=== PATIENT | female | born 1935 | race Caucasian/White ===

== ENCOUNTER → 2018-04-14 16:37 | Outpatient (CLI) | payer MEDICARE, OTHER, SELFPAY ==
[2018-04-14 18:31] LABS: Add Manual Diff / Slide Review NO; Basophils Percent Auto 1.4 % (0-2); Eosinophils Percent Auto 4.4 % (2-4); Hematocrit 43.2 % (36-46); Hemoglobin 14.2 g/dL (12.0-16.0); Lymphocytes Percent Auto 36.4 % (25-40); Mean Corpuscular HGB Conc 32.8 % (30-36); Mean Corpuscular Hemoglobin 30.8 PG (26-34); Mean Corpuscular Volume 93.8 fL (80-100); Monocytes Percent Auto 10.4 % (3-14); Neutrophils Absolute Auto 2800 /uL (3000-5900); Neutrophils Percent Auto 47.4 % (50-75); Platelet Count 262 X10^3/uL (150-400); Red Blood Cell Count 4.61 X10^6/uL (4.0-5.2); Red Cell Distribution Width 14.1 % (11.6-14.8)
[2018-04-14 18:41] LABS: INR 1.1 (0.9-1.3); Prothrombin Time 11.7 SECONDS (10.1-12.7)
[2018-04-14 18:43] LABS: PTT Partial Thromboplastin Tim 28 SECONDS (26.4-36.2)
[2018-04-14 19:11] LABS: Alanine Aminotransferase 21 IU/L (9-52); Albumin 4.8 g/dL (3.5-5.0); Albumin Globulin Ratio 1.9 (1.0-2.8); Alkaline Phosphatase 52 U/L (38-126); Aspartate Aminotransferase 31 IU/L (14-36); Bilirubin Total 0.5 mg/dL (0.2-1.3); Blood Urea Nitrogen 14 mg/dL (7-17); Calcium 9.6 mg/dL (8.4-10.2); Carbon Dioxide 27 mmol/L (22-32); Chloride 102 mmol/L (98-107); Cholesterol 191 mg/dL (140-199); Estimated Glomerular Filt Rate > 60.0 mL/min (>60); Globulin 2.5 g/dL (1.7-4.1); Glucose 86 mg/dL (80-110); HEMOLYSIS < 15 (0-50); Potassium 4.6 mmol/L (3.4-5.1); Sodium 142 mmol/L (137-145); Total Protein 7.3 g/dL (6.3-8.2); Triglycerides 52 mg/dL (35-150)
[2018-04-14 19:18] LABS: HDL Cholesterol 128 mg/dL (40-60); LDL Cholesterol Calculated 53 mg/dL (<100)
== END ==
PROVIDERS: Visit Provider Ophthalmology
DX: H34.11 Central retinal artery occlusion, right eye (principal)
CPT/HCPCS: 36415; 80053; 80061; 85025; 85610; 85730

== ENCOUNTER → 2020-02-09 07:40 | Outpatient (CLI) | payer MEDICARE, OTHER, SELFPAY ==
[2020-02-09 10:50] LABS: Alanine Aminotransferase 10 IU/L (<35); Albumin 4.3 g/dL (3.5-5.0); Albumin Globulin Ratio 1.4 (1.0-2.8); Alkaline Phosphatase 56 U/L (38-126); Aspartate Aminotransferase 30 IU/L (14-36); BUN Creatinine Ratio 16.7 (6-22); Bilirubin Total 0.8 mg/dL (0.2-1.3); Blood Urea Nitrogen 11 mg/dL (7-17); Calcium 9.7 mg/dL (8.4-10.2); Carbon Dioxide 28 mmol/L (22-32); Chloride 103 mmol/L (98-107); Cholesterol 174 mg/dL (140-199); Estimated Glomerular Filt Rate > 60.0 mL/min (>60); Glucose 87 mg/dL (80-110); HDL Cholesterol 86 mg/dL (40-60); HEMOLYSIS < 15 (0-50); LDL Cholesterol Calculated 73 mg/dL (<100); Potassium 4.2 mmol/L (3.4-5.1); Sodium 137 mmol/L (137-145); Total Protein 7.3 g/dL (6.3-8.2); Triglycerides 77 mg/dL (35-150)
[2020-02-09 11:06] LABS: Vitamin D 25 Hydroxy (D3) 51.3 ng/mL (30.0-100.0)
[2020-02-09 11:12] LABS: Free T4, Direct Thyroxine 1.39 ng/dL (0.78-2.19); T4 Total Thyroxine 7.81 ug/dL (5.5-11.0); T7 (Free Thyroxine Index) 3.16 (1.65-3.89); Triiodothryronine T3 Uptake 40.4 % (23.5-40.5)
[2020-02-09 11:25] LABS: Thyroid Stimulating Hormone 0.055 uIU/mL (0.47-4.68)
== END ==
PROVIDERS: PCP Family Medicine Adult Medicine; Referring Provider Family Medicine Adult Medicine; Visit Provider Family Medicine Adult Medicine
DX: E03.9 Hypothyroidism, unspecified (principal); E78.5 Hyperlipidemia, unspecified; E55.9 Vitamin D deficiency, unspecified
CPT/HCPCS: 36415; 80053; 80061; 82306; 84436; 84439; 84443; 84479

== ENCOUNTER → 2020-05-02 09:48 | Outpatient (CLI) | payer MEDICARE, OTHER, SELFPAY ==
[2020-05-02 11:22] LABS: T4 Total Thyroxine 8.86 ug/dL (5.5-11.0); T7 (Free Thyroxine Index) 3.58 (1.65-3.89); Triiodothryronine T3 Uptake 40.4 % (23.5-40.5)
[2020-05-02 11:35] LABS: Thyroid Stimulating Hormone 0.037 uIU/mL (0.47-4.68)
== END ==
PROVIDERS: PCP Family Medicine Adult Medicine; Referring Provider Family Medicine Adult Medicine; Visit Provider Family Medicine Adult Medicine
DX: E03.9 Hypothyroidism, unspecified (principal)
CPT/HCPCS: 36415; 84436; 84439; 84443; 84479

== ENCOUNTER → 2021-10-24 13:13 | Outpatient (CLI) | payer MEDICARE, OTHER, SELFPAY ==
[2021-10-24 13:52] LABS: Hematocrit 42.8 % (36-46); Hemoglobin 14.3 g/dL (12.0-16.0); Mean Corpuscular HGB Conc 33.4 % (30-36); Mean Corpuscular Hemoglobin 30.5 PG (26-34); Mean Corpuscular Volume 91.3 fL (80-100); Platelet Count 293 X10^3/uL (150-400); Red Blood Cell Count 4.68 X10^6/uL (4.0-5.2); Red Cell Distribution Width 14.5 % (11.6-14.8); White Blood Cell Count 5.8 X10^3/uL (4.5-11.0)
[2021-10-24 14:21] LABS: Alanine Aminotransferase 12 IU/L (<35); Albumin 4.8 g/dL (3.5-5.0); Albumin Globulin Ratio 1.6 (1.0-2.8); Alkaline Phosphatase 60 U/L (38-126); Aspartate Aminotransferase 31 IU/L (14-36); BUN Creatinine Ratio 20.5 (6-22); Bilirubin Total 0.5 mg/dL (0.2-1.3); Blood Urea Nitrogen 15 mg/dL (7-17); Calcium 9.6 mg/dL (8.4-10.2); Carbon Dioxide 29 mmol/L (22-32); Chloride 104 mmol/L (98-107); Cholesterol 199 mg/dL (140-199); Estimated Glomerular Filt Rate > 60 mL/min (>60); Glucose 125 mg/dL (80-110); HDL Cholesterol 107 mg/dL (40-60); HEMOLYSIS < 15 (0-50); LDL Cholesterol Calculated 78 mg/dL (<100); Sodium 140 mmol/L (137-145); Total Protein 7.8 g/dL (6.3-8.2); Triglycerides 71 mg/dL (35-150)
[2021-10-24 14:52] LABS: TSH w/ Reflex to FT4 0.28 uIU/mL (0.47-4.68)
[2021-10-24 15:20] LABS: Free T4, Direct Thyroxine 1.52 ng/dL (0.78-2.19)
== END ==
PROVIDERS: PCP Internal Medicine; Referring Provider Internal Medicine; Visit Provider Internal Medicine
DX: E03.9 Hypothyroidism, unspecified (principal); H34.8112 Central retinal vein occlusion, right eye, stable; I10 Essential (primary) hypertension
CPT/HCPCS: 36415; 80053; 80061; 84439; 84443; 85027

== ENCOUNTER → 2021-12-18 14:32 | Outpatient (CLI) | payer MEDICARE, OTHER, SELFPAY | PROVIDERS: PCP Internal Medicine; Referring Provider Internal Medicine; Visit Provider Internal Medicine ==

== ENCOUNTER → 2022-01-15 11:52 | Outpatient (CLI) | payer MEDICARE, OTHER, SELFPAY | PROVIDERS: Family Provider Internal Medicine; PCP Internal Medicine; Referring Provider Internal Medicine; Visit Provider Internal Medicine ==

== ENCOUNTER → 2022-02-01 14:00 | Outpatient (CLI) | payer MEDICARE, OTHER, SELFPAY | PROVIDERS: Family Provider Internal Medicine; PCP Internal Medicine; Referring Provider Internal Medicine; Visit Provider Internal Medicine | DX: Z13.820 Encounter for screening for osteoporosis; Z78.0 Asymptomatic menopausal state; M85.851 Other specified disorders of bone density and structure, right thigh; Z92.23 Personal history of estrogen therapy | CPT/HCPCS: 77080; 77081 ==

== ENCOUNTER → 2022-04-11 11:56 | Outpatient (CLI) | payer MEDICARE, OTHER, SELFPAY ==
[2022-04-11 14:12] LABS: Free T4, Direct Thyroxine 0.95 ng/dL (0.78-2.19)
== END ==
PROVIDERS: Family Provider Internal Medicine; PCP Internal Medicine; Referring Provider Internal Medicine; Visit Provider Internal Medicine
DX: E03.9 Hypothyroidism, unspecified (principal)
CPT/HCPCS: 36415; 84439; 84443

== ENCOUNTER → 2022-04-16 12:52 | Outpatient (CLI) | payer MEDICARE, OTHER, SELFPAY ==
--- NOTE | 2022-04-16 12:54 | DI.MRI.S_ITS ---
PROCEDURE: MR SHOULDER RT WO CON INDICATIONS: Unspecified rotator cuff tear or rupture right TECHNIQUE: Noncontrast oblique coronal T2 fast spin echo with fat saturation, oblique sagittal T1 spin echo and T2 fast spin echo with fat saturation, axial T1 spin echo and T2 fast spin echo with fat saturation through the shoulder. COMPARISON: [facility], CR, XR SHOULDER 2+ VIEWS RIGHT, 04/08/2022, 10:12. FINDINGS: Image quality: Excellent. Rotator cuff: There is full-thickness tearing of the supraspinatus tendon and the anterior fibers of the infraspinatus tendon from their distal footprints measuring approximately 1.8 cm in anterior-posterior dimension with mild proximal tendon retraction measuring up to 1.6 cm. The teres minor tendon is intact. There is moderate subscapularis tendinosis and mild focal low-grade intrasubstance tearing at the superior insertion. No disproportionate rotator cuff muscle atrophy. Bones and bursae: No acute trabecular bone injury or fracture. There is partial-thickness cartilage thinning in the central glenoid and mild marginal osteophyte formation in the glenoid rim and inferior humeral head. [id number] degenerative changes are seen in the acromioclavicular joint with subchondral cystic changes intact and marginal osteophytes. And inferiorly projecting lateral acromial osteophyte is seen with subchondral cystic changes. There is a moderate amount of fluid in the subacromial/subdeltoid bursa, which communicates with the glenohumeral joint space. Capsule and soft tissues: There is circumferential labored degeneration and probable chronic nondisplaced tearing. The proximal biceps long head tendon demonstrates mild tendinosis. There is effacement of the normal fat signal in the rotator interval. Glenohumeral ligaments are grossly intact. IMPRESSION: 1. Full-thickness tearing of the supraspinatus tendon and the anterior fibers of the infraspinatus tendon from their distal footprints measuring up to 1.8 cm and anterior-posterior dimension with 1.6 cm of proximal tendon retraction. 2. Moderate subscapularis tendinosis with superimposed small focal low-grade intrasubstance tearing at the superior insertion. 3. Mild proximal biceps long head tendinosis. 4. Diffuse labral degeneration and chronic degenerative tearing. 5. Mild to moderate acromioclavicular joint osteoarthrosis. And inferiorly projecting lateral acromial osteophyte is seen with associated subchondral cystic changes. 6. Moderate subacromial/subdeltoid bursal effusion communicates with the glenohumeral joint space. Approved by: Bola Landa M.D. on 04/16/2022 at 17:06
== END ==
PROVIDERS: Family Provider Internal Medicine; PCP Internal Medicine; Referring Provider Orthopaedic Surgery; Visit Provider Orthopaedic Surgery
DX: M75.121 Complete rotator cuff tear or rupture of right shoulder, not specified as traumatic (principal); S43.491A Other sprain of right shoulder joint, initial encounter; M19.011 Primary osteoarthritis, right shoulder; M25.411 Effusion, right shoulder
CPT/HCPCS: 73221

== ENCOUNTER → 2022-07-09 08:07 | Outpatient (CLI) | payer MEDICARE, OTHER, SELFPAY ==
[2022-07-09 09:17] LABS: Hematocrit 39.8 % (36-46); Hemoglobin 13.4 g/dL (12.0-16.0); Mean Corpuscular HGB Conc 33.6 % (30-36); Mean Corpuscular Volume 95.3 fL (80-100); Platelet Count 254 X10^3/uL (150-400); Red Blood Cell Count 4.18 X10^6/uL (4.0-5.2); Red Cell Distribution Width 14.7 % (11.6-14.8); White Blood Cell Count 5.1 X10^3/uL (4.5-11.0)
[2022-07-09 09:28] LABS: Alanine Aminotransferase 15 IU/L (<35); Albumin 4.1 g/dL (3.5-5.0); Albumin Globulin Ratio 1.4 (1.0-2.8); Alkaline Phosphatase 50 U/L (38-126); Aspartate Aminotransferase 31 IU/L (14-36); BUN Creatinine Ratio 19.4 (6-22); Bilirubin Total 0.7 mg/dL (0.2-1.3); Blood Urea Nitrogen 14 mg/dL (7-17); Calcium 9.3 mg/dL (8.4-10.2); Carbon Dioxide 28 mmol/L (22-32); Chloride 104 mmol/L (98-107); Cholesterol 201 mg/dL (140-199); Estimated Glomerular Filt Rate > 60 mL/min (>60); Globulin 2.9 g/dL (1.7-4.1); Glucose 92 mg/dL (80-110); HDL Cholesterol 97 mg/dL (40-60); HEMOLYSIS < 15 (0-50); LDL Cholesterol Calculated 91 mg/dL (<100); Potassium 4.5 mmol/L (3.4-5.1); Sodium 138 mmol/L (137-145); Triglycerides 64 mg/dL (35-150)
[2022-07-09 10:33] LABS: Free T4, Direct Thyroxine 1.08 ng/dL (0.78-2.19)
== END ==
PROVIDERS: Family Provider Internal Medicine; PCP Internal Medicine; Referring Provider Internal Medicine; Visit Provider Internal Medicine
DX: I10 Essential (primary) hypertension (principal); E03.9 Hypothyroidism, unspecified; E78.2 Mixed hyperlipidemia; M81.0 Age-related osteoporosis without current pathological fracture
CPT/HCPCS: 36415; 80053; 80061; 84439; 84443; 85027

== ENCOUNTER → 2022-08-23 08:58 | Outpatient (CLI) | payer MEDICARE, OTHER, SELFPAY ==
[2022-08-23 09:56] LABS: BUN Creatinine Ratio 19.4 (6-22); Blood Urea Nitrogen 13 mg/dL (7-17); Carbon Dioxide 28 mmol/L (22-32); Chloride 103 mmol/L (98-107); Estimated Glomerular Filt Rate > 60 mL/min (>60); Glucose 88 mg/dL (80-110); HEMOLYSIS < 15 (0-50); Potassium 4.4 mmol/L (3.4-5.1); Sodium 136 mmol/L (137-145)
== END ==
PROVIDERS: Family Provider Internal Medicine; PCP Internal Medicine; Referring Provider Internal Medicine; Visit Provider Internal Medicine
DX: I10 Essential (primary) hypertension (principal)
CPT/HCPCS: 36415; 80048

== ENCOUNTER 2022-11-05 10:20 | Emergency (ER) | payer MEDICARE, OTHER, SELFPAY ==
[2022-11-05 10:33] VITALS: BP 160/66; PULSE 67; RESP 18; TEMP 36.5; O2SAT 99
[2022-11-05 11:23] LABS: Add Manual Diff / Slide Review NO; Basophils Absolute Auto 0 /uL (0-100); Eosinophils Absolute Auto 0 /uL (0-450); Eosinophils Percent Auto 0.9 % (2-4); Hemoglobin 14.8 g/dL (12.0-16.0); Lymphocytes Absolute Auto 1600 /uL (1100-4500); Lymphocytes Percent Auto 31.2 % (25-40); Mean Corpuscular HGB Conc 34.3 % (30-36); Mean Corpuscular Hemoglobin 31.5 PG (26-34); Mean Corpuscular Volume 91.7 fL (80-100); Monocytes Absolute Auto 600 /uL (0-900); Monocytes Percent Auto 10.7 % (3-14); Neutrophils Absolute Auto 2900 /uL (1500-7000); Neutrophils Percent Auto 56.2 % (50-75); Platelet Count 274 X10^3/uL (150-400); Red Blood Cell Count 4.68 X10^6/uL (4.0-5.2); Red Cell Distribution Width 14.7 % (11.6-14.8); White Blood Cell Count 5.2 X10^3/uL (4.5-11.0)
[2022-11-05 11:43] LABS: Alanine Aminotransferase 18 IU/L (<35); Albumin 4.8 g/dL (3.5-5.0); Albumin Globulin Ratio 1.5 (1.0-2.8); Alkaline Phosphatase 53 U/L (38-126); Aspartate Aminotransferase 32 IU/L (14-36); Bilirubin Total 0.8 mg/dL (0.2-1.3); Blood Urea Nitrogen 13 mg/dL (7-17); Calcium 9.5 mg/dL (8.4-10.2); Carbon Dioxide 28 mmol/L (22-32); Chloride 101 mmol/L (98-107); Estimated Glomerular Filt Rate > 60 mL/min (>60); Globulin 3.2 g/dL (1.7-4.1); Glucose 124 mg/dL (80-110); HEMOLYSIS < 15 (0-50); Lipase 120 U/L (23-300); Potassium 4.1 mmol/L (3.4-5.1); Sodium 138 mmol/L (137-145)
--- NOTE | 2022-11-05 12:46 | ED_ITS ---
HPI - Abdominal Pain <Massiel Arenas PA-C - Last Filed: 11/05/22 16:39> General Chief Complaint: Abdominal Pain Stated Complaint: pain in right side Time Seen by Provider: 11/05/22 12:19 Source: patient Mode of arrival: Family Vehicle History of Present Illness HPI narrative: 87-year-old female with past medical history hyperlipidemia, hypertension, hypothyroidism presents to the ED with 1 day of right-sided abdominal pain. Patient states she awoke this morning with a right-sided abdominal pain, both the right upper and right lower quadrants. Patient states that in the ED, she had a bowel movement which was somewhat looser than normal, her abdominal pain seems greatly improved after that. Patient denies fever, chills, chest pain, shortness of breath, nausea, vomiting, dysuria, flank pain, hematochezia, m maribeth, lightheadedness, dizziness, syncope. Patient has had a prior rectopexy and hernia repair. Related Data Home Medications Medication Instructions Recorded Confirmed calcium carbonate 500 mg capsule 500 mg PO BID 10/24/21 11/06/22 aspirin 81 mg tablet,delayed 81 mg PO .every other day 01/24/22 11/06/22 release levothyroxine 50 mcg tablet 50 mcg PO .COMPLEX 07/12/22 11/06/22 Previous Rx's Medication Instructions Recorded losartan 50 mg tablet 50 mg PO DAILY #90 tabs 08/09/22 Allergies Allergy/AdvReac Type Severity Reaction Status Date / Time amoxicillin Allergy Unknown Verified 11/06/22 14:52 lisinopril AdvReac Intermediate Cough Verified 11/06/22 14:52 nitrofurantoin AdvReac Unknown Verified 11/06/22 14:52 Review of Systems <Massiel Arenas PA-C - Last Filed: 11/05/22 16:39> Review of Systems ROS Unobtainable: All systems reviewed & are unremarkable except as noted in HPI and below Constitutional Constitutional: Denies chills, Denies fatigue, Denies fever(s), Denies frequent falls, Denies lethargy and Denies weakness Eyes Eyes: Denies change in vision, Denies eye discharge, Denies irritation and Denies loss of vision ENT Ears, Nose, Mouth, and Throat: Denies change in voice, Denies dizziness, Denies neck pain, Denies sore throat and Denies throat swelling Cardiovascular Cardiovascular: Denies chest pain, Denies irregular heart rhythm, Denies lightheadedness, Denies palpitations, Denies dyspnea, Denies dyspnea on exertion and Denies orthopnea Respiratory Respiratory: Denies cough, Denies dyspnea, Denies dyspnea on exertion and Denies wheezing Gastrointestinal Gastrointestinal: Reports abdominal pain, Denies change in bowel habits, Denies diarrhea, Denies nausea and Denies vomiting Genitourinary Genitourinary: Denies hematuria, Denies flank pain, Denies urinary incontinence and Denies urinary urgency Musculoskeletal Musculoskeletal: Denies back pain, Denies muscle weakness, Denies neck pain, Denies numbness and Denies tingling Integumentary/Breasts Skin/Breast: Denies pruritus, Denies erythema, Denies rash and Denies wounds Neurologic Neurologic: Denies behavioral changes, Denies confusion, Denies dizziness, Denies frequent falls, Denies loss of vision, Denies numbness, Denies tingling and Denies weakness Psychiatric Psychiatric: Denies anxiety, Denies behavioral changes, Denies confusion, Denies depression, Denies homicidal ideation and Denies suicidal ideation Endocrine Endocrine: Denies fatigue, Denies flushing and Denies palpitations Hematologic/Lymphatic Hematologic/Lymphatic: Denies easy bruising Allergic/Immunologic Allergic/Immunologic: Denies urticaria, Denies throat swelling and Denies wheezing Patient History <Massiel Arenas PA-C - Last Filed: 11/05/22 16:39> Medical History Abnormal Pap smear of cervix (~1973) Acquired hypothyroidism Actinic keratosis Age-related osteoporosis without current pathological fracture Carpal tunnel syndrome Cataracts, bilateral Chicken pox CRVO (central retinal vein occlusion) Do not resuscitate Essential hypertension Frequent UTI Hearing loss Hemorrhoid (~2004) IgA deficiency Measles Mixed hyperlipidemia Mumps Pseudogout Surgical History Anesthesia History of hip replacement (~2007) History of inguinal hernia repair (~1941) History of rectopexy (~2004) History of tubal ligation (~1969) Hx of breast implants, bilateral (~1977) Social History marital status: details: ([place]) Smoking Status: Former smoker Smoking Status: Former smoker tobacco type: cigarettes alcohol intake frequency: 0-2 drinks per day Substance Use Type: does not use Exam <Massiel Arenas PA-C - Last Filed: 11/05/22 16:39> Narrative Exam Narrative: Const General:?cooperative, healthy appearing and comfortable [facility] Head:?normal to inspection Ears:?hearing grossly normal bilaterally Nose:?external nose normal Face and sinus:?normal facial exam and sinuses nontender Mouth:?oral mucosae normal Throat:?posterior oropharynx normal Eyes General:?appearance normal, both eyes and all related structures Neck Neck:?normal visual inspection and no lymphadenopathy noted Resp Effort & Inspection:?normal respiratory effort Auscultation:?clear to auscultation bilaterally Cardio Rate:?regular rate Rhythm:?regular rhythm GI Abdomen is soft, nondistended. Abdomen is significantly tender to palpation the right upper quadrant, mildly tender to palpation in the right lower quadrant. There is no CVA tenderness. Neuro General:?patient alert, patient awake and patient oriented x3 Initial Vital Signs Initial Vital Signs: Vital Signs Temperature 97.7 F 11/05/22 10:33 Pulse Rate 67 11/05/22 10:33 Respiratory Rate 18 11/05/22 10:33 Blood Pressure 160/66 H 11/05/22 10:33 Pulse Oximetry 99 11/05/22 10:33 Oxygen Delivery Method Room Air 11/05/22 10:33 <Tanya Shah DO - Last Filed: 11/08/22 07:26> Initial Vital Signs Initial Vital Signs: Vital Signs Temperature 97.7 F 11/05/22 10:33 Pulse Rate 67 11/05/22 10:33 Respiratory Rate 18 11/05/22 10:33 Blood Pressure 160/66 H 11/05/22 10:33 Pulse Oximetry 99 11/05/22 10:33 Oxygen Delivery Method Room Air 11/05/22 10:33 Course <Massiel Arenas PA-C - Last Filed: 11/05/22 16:39> Orders Ordered: Discontinued Medications Ondansetron HCl (Ondansetron 4 Mg Odt) 4 mg PO NOW PRN PRN Reason: Nausea And Vomiting Ondansetron HCl (Ondansetron 4 Mg/2 Ml Inj) 4 mg IV NOW PRN PRN Reason: Nausea And Vomiting Vital Signs Vital signs: Vital Signs - 8 hr 11/05/22 10:33 11/05/22 13:03 11/05/22 13:04 Temperature 97.7 F Pulse Rate 67 56 L Respiratory Rate 18 Blood Pressure 160/66 H Pulse Oximetry 99 94 94 Oxygen Delivery Method Room Air Room Air 11/05/22 13:04 11/05/22 13:45 11/05/22 13:45 Temperature Pulse Rate 65 Respiratory Rate 18 Blood Pressure 154/70 H 162/76 H Pulse Oximetry 99 Oxygen Delivery Method Room Air 11/05/22 16:09 Temperature Pulse Rate 65 Respiratory Rate 20 Blood Pressure 164/72 H Pulse Oximetry 98 Oxygen Delivery Method Room Air <Tanya Shah DO - Last Filed: 11/08/22 07:26> Orders Ordered: Discontinued Medications Ondansetron HCl (Ondansetron 4 Mg Odt) 4 mg PO NOW PRN PRN Reason: Nausea And Vomiting Ondansetron HCl (Ondansetron 4 Mg/2 Ml Inj) 4 mg IV NOW PRN PRN Reason: Nausea And Vomiting Vital Signs Vital signs: Vital Signs - 8 hr 11/05/22 10:33 11/05/22 13:03 11/05/22 13:04 Temperature 97.7 F Pulse Rate 67 56 L Respiratory Rate 18 Blood Pressure 160/66 H Pulse Oximetry 99 94 94 Oxygen Delivery Method Room Air Room Air 11/05/22 13:04 11/05/22 13:45 11/05/22 13:45 Temperature Pulse Rate 65 Respiratory Rate 18 Blood Pressure 154/70 H 162/76 H Pulse Oximetry 99 Oxygen Delivery Method Room Air 11/05/22 16:09 Temperature Pulse Rate 65 Respiratory Rate 20 Blood Pressure 164/72 H Pulse Oximetry 98 Oxygen Delivery Method Room Air MDM - Abdominal Pain <Massiel Arenas PA-C - Last Filed: 11/05/22 16:39> Lab Data 11/05/22 11:15 11/05/22 11:15 Labs: Lab Results 11/05/22 11/05/22 11/05/22 Range/Units 11:15 11:15 14:03 WBC 5.2 (4.5-11.0) X10^3/uL RBC 4.68 (4.0-5.2) X10^6/uL Hgb 14.8 (12.0-16.0) g/dL Hct 43.0 (36-46) % MCV 91.7 (80-100) fL MCH 31.5 (26-34) PG MCHC 34.3 (30-36) % RDW 14.7 (11.6-14.8) % Plt Count 274 (150-400) X10^3/uL Neut % (Auto) 56.2 (50-75) % Lymph % (Auto) 31.2 (25-40) % Catron % (Auto) 10.7 (3-14) % Eos % (Auto) 0.9 L (2-4) % Baso % (Auto) 1.0 (0-2) % Neut # (Auto) 2900 (3646-2374) /uL Lymph # (Auto) 1600 (1209-3087) /uL Catron # (Auto) 600 (0-900) /uL Eos # (Auto) 0 (0-450) /uL Baso # (Auto) 0 (0-100) /uL Sodium 138 (137-145) mmol/L Potassium 4.1 (3.4-5.1) mmol/L Chloride 101 (98-107) mmol/L Carbon Dioxide 28 (22-32) mmol/L BUN 13 (7-17) mg/dL Creatinine 0.65 (0.52-1.04) mg/dL Estimated GFR > 60 (>60) mL/min BUN/Creatinine Ratio 20.0 (6-22) Glucose 124 H (80-110) mg/dL Calcium 9.5 (8.4-10.2) mg/dL Total Bilirubin 0.8 (0.2-1.3) mg/dL AST 32 (14-36) IU/L ALT 18 (<35) IU/L Alkaline Phosphatase 53 (38-126) U/L Total Protein 8.0 (6.3-8.2) g/dL Albumin 4.8 (3.5-5.0) g/dL Globulin 3.2 (1.7-4.1) g/dL Albumin/Globulin Ratio 1.5 (1.0-2.8) Lipase 120 (23-300) U/L Urine Color Yellow Urine Appearance Clear Urine pH 7.5 (4.5-8.0) Ur Specific [place] 1.010 (1.000-1.035) Urine Protein Negative (Negative) Urine Glucose (UA) Negative (Negative) g/dL Urine Ketones Negative (NEGATIVE) Urine Occult Blood Negative (Negative) Urine Nitrate Negative (Negative) Urine Bilirubin Negative (NEGATIVE) Urine Urobilinogen 0.2 (0.2) E.U./dL Ur Leukocyte Esterase Negative (NEGATIVE) Urine RBC None seen (0-5/HPF) Urine WBC None seen (0-5/HPF) Ur Squamous Epith Cells None seen (0-5/HPF) Urine Bacteria None seen (None) Ur Culture Indicated? Cult not indicated MDM Narrative Medical decision making narrative: 87-year-old female with past medical history hyperlipidemia, hypertension, hypothyroidism presents to the ED with 1 day of right-sided abdominal pain. Concern for gallbladder disease versus appendicitis versus constipation versus diverticulitis versus other intra-abdominal pathology versus other. Will obtain labs, UA, lipase, CT abdomen pelvis, ultrasound right upper quadrant. Will reassess. Labs, urine normal. CT abdomen pelvis and ultrasound without acute findings. Patient's symptoms likely due to gastroenteritis or constipation. Discussed findings with patient. Patient agrees to monitor symptoms and return to the ED if symptoms worsen. Medical records reviewed: Yes <Tanya Shah DO - Last Filed: 11/08/22 07:26> Lab Data Labs: Lab Results 11/05/22 11/05/22 11/05/22 Range/Units 11:15 11:15 14:03 WBC 5.2 (4.5-11.0) X10^3/uL RBC 4.68 (4.0-5.2) X10^6/uL Hgb 14.8 (12.0-16.0) g/dL Hct 43.0 (36-46) % MCV 91.7 (80-100) fL MCH 31.5 (26-34) PG MCHC 34.3 (30-36) % RDW 14.7 (11.6-14.8) % Plt Count 274 (150-400) X10^3/uL Neut % (Auto) 56.2 (50-75) % Lymph % (Auto) 31.2 (25-40) % Catron % (Auto) 10.7 (3-14) % Eos % (Auto) 0.9 L (2-4) % Baso % (Auto) 1.0 (0-2) % Neut # (Auto) 2900 (1474-4429) /uL Lymph # (Auto) 1600 (9126-2803) /uL Catron # (Auto) 600 (0-900) /uL Eos # (Auto) 0 (0-450) /uL Baso # (Auto) 0 (0-100) /uL Sodium 138 (137-145) mmol/L Potassium 4.1 (3.4-5.1) mmol/L Chloride 101 (98-107) mmol/L Carbon Dioxide 28 (22-32) mmol/L BUN 13 (7-17) mg/dL Creatinine 0.65 (0.52-1.04) mg/dL Estimated GFR > 60 (>60) mL/min BUN/Creatinine Ratio 20.0 (6-22) Glucose 124 H (80-110) mg/dL Calcium 9.5 (8.4-10.2) mg/dL Total Bilirubin 0.8 (0.2-1.3) mg/dL AST 32 (14-36) IU/L ALT 18 (<35) IU/L Alkaline Phosphatase 53 (38-126) U/L Total Protein 8.0 (6.3-8.2) g/dL Albumin 4.8 (3.5-5.0) g/dL Globulin 3.2 (1.7-4.1) g/dL Albumin/Globulin Ratio 1.5 (1.0-2.8) Lipase 120 (23-300) U/L Urine Color Yellow Urine Appearance Clear Urine pH 7.5 (4.5-8.0) Ur Specific [place] 1.010 (1.000-1.035) Urine Protein Negative (Negative) Urine Glucose (UA) Negative (Negative) g/dL Urine Ketones Negative (NEGATIVE) Urine Occult Blood Negative (Negative) Urine Nitrate Negative (Negative) Urine Bilirubin Negative (NEGATIVE) Urine Urobilinogen 0.2 (0.2) E.U./dL Ur Leukocyte Esterase Negative (NEGATIVE) Urine RBC None seen (0-5/HPF) Urine WBC None seen (0-5/HPF) Ur Squamous Epith Cells None seen (0-5/HPF) Urine Bacteria None seen (None) Ur Culture Indicated? Cult not indicated Discharge Plan Departure Patient Disposition: Home Clinical Impression: Abdominal pain Instructions: DI for Abdominal Pain-Adult Activity Restrictions/Additional Instructions: You were evaluated in the ED today for abdominal pain. Your labs, urine, CT abdomen pelvis, ultrasound were normal. It is possible that your abdominal pain was due to an upset stomach from something that UA that might not have agreed with you. Please continue to monitor your symptoms, return to the ED if your abdominal pain worsens, you are persistently vomiting, you develop fevers or chills. Please follow-up with your PCP as soon as possible. Prescriptions: No Action losartan 50 mg tablet 50 mg PO DAILY Qty: 90 3RF aspirin 81 mg tablet,delayed release (DR/EC) 81 mg PO .every other day levothyroxine 50 mcg tablet 50 mcg PO .COMPLEX Rx Instructions: 1 tablet daily 5 days weekly, take two tablets 2 days weekly calcium carbonate 500 mg capsule 500 mg PO BID Referrals: Jim Fuller MD [Primary Care Provider] - Stand Alone Forms: Patient Portal/API <Tanya Shah DO - Last Filed: 11/08/22 07:26> Cosign ED Attending Deeature Attestation: I was immediately available in the department for consultation. Documentation has been reviewed.
--- NOTE | 2022-11-05 12:55 | DI.CT.S_ITS ---
PROCEDURE: CT ABDOMEN PELVIS W CON INDICATIONS: RLQ pain TECHNIQUE: After the administration of intravenous contrast, axial sections acquired from the lung bases to the pubic symphysis. Coronal and sagittal reformats were performed. For radiation dose reduction, the following was used: automated exposure control, adjustment of mA and/or kV according to patient size. COMPARISON: [facility], CT, ABDOMEN/PELVIS WITH CONTRAST, 04/14/2013, 20:37. FINDINGS: Image quality: Degraded by left hip arthroplasty artifact. Lung bases: Unremarkable. Heart: No significant findings. ABDOMEN: Liver: Unremarkable. Gallbladder: Unremarkable. Biliary ducts: Unremarkable. Pancreas: Unremarkable. Spleen: Unremarkable. Adrenal Glands: Unremarkable. Kidneys and Ureters: Unremarkable. Stomach and Bowel: Stomach, small bowel loops, and colon are unremarkable. Appendix is not seen. No evidence of appendicitis. Peritoneum: No abnormal intraperitoneal fluid. No free air. Ventral Wall: No hernias. Abdominal Nodes: No retroperitoneal or mesenteric adenopathy by size criteria. Vessels: Aorta and inferior vena cava are normal in size. PELVIS: Pelvic Organs: Unremarkable. Bladder: Unremarkable. Pelvic Nodes: No enlarged lymph nodes. Miscellaneous: No hernias are seen. Bones: Unremarkable. IMPRESSION: 1. No acute process. 2. Appendix not seen. No evidence of appendicitis. Dictated by: Keturah Mejia M.D. on 11/05/2022 at 13:59 Approved by: Keturah Mejia M.D. on 11/05/2022 at 14:02
--- NOTE | 2022-11-05 12:55 | DI.US.S_ITS ---
PROCEDURE: US ABDOMEN LIMITED INDICATIONS: RIGHT UPPER QUADRANT PAIN TECHNIQUE: Real-time scanning was performed of the abdominal and retroperitoneal organs, with image documentation. COMPARISON: None. FINDINGS: Liver: Homogeneous echotexture. No evidence of focal mass lesion. No intra hepatic biliary ductal dilatation Gallbladder: Sonolucent without cholelithiasis. No gallbladder wall thickening. No pericholecystic fluid or Tavares's sign. Common Bile Duct: 3.7 mm. Pancreas: Nonvisualized IMPRESSION: 1. Unremarkable right upper quadrant ultrasound Approved by: Demetri Johnson M.D. on 11/05/2022 at 14:46
[2022-11-05 13:03] VITALS: O2SAT 94
[2022-11-05 13:04] VITALS: BP 154/70; PULSE 56; O2SAT 94
[2022-11-05 13:45] VITALS: BP 162/76; PULSE 65; RESP 18; O2SAT 99
--- NOTE | 2022-11-05 13:45 | PC.NURSE ---
Patient reports improvement in pain since a bowel movement in department, able to reproduce pain by flexing abdomen.
[2022-11-05 14:42] LABS: Appearance Urine UA CLEAR; Bilirubin Urine UA NEGATIVE (NEGATIVE); Color Urine UA YELLOW; Glucose Urine UA NEGATIVE (Negative); Ketones Urine UA NEGATIVE (NEGATIVE); Leukocyte Esterase Urine UA NEGATIVE (NEGATIVE); Nitrite Urine UA NEGATIVE (Negative); Occult Blood Urine UA NEGATIVE (Negative); Protein Urine UA NEGATIVE (Negative); Urobilinogen Urine UA 0.2 E.U./dL (0.2)
[2022-11-05 14:44] LABS: pH Urine UA 7.5 (4.5-8.0)
[2022-11-05 14:56] LABS: Bacteria Urine None Seen; Culture Indicated Urine Cult Not Indicated; RBC Urine None Seen (0-5/HPF); Squamous Epithelial Cell Urine None Seen (0-5/HPF); WBC Urine None Seen (0-5/HPF)
[2022-11-05 16:09] VITALS: BP 164/72; PULSE 65; RESP 20; O2SAT 98
== END 2022-11-05 16:10 | disposition home or self-care (01) ==
PROVIDERS: Emergency Medicine; Emergency Provider Student in an Organized Health Care Education/Training Program; Family Provider Internal Medicine; PCP Internal Medicine
DX: R10.11 Right upper quadrant pain (principal)
CPT/HCPCS: 36415; 74177; 76705; 80053; 81001; 83690; 85025; 99284; Q9967

== ENCOUNTER → 2023-01-23 08:35 | Outpatient (CLI) | payer MEDICARE, OTHER, SELFPAY ==
[2023-01-23 09:24] LABS: Cholesterol 194 mg/dL (140-199); HDL Cholesterol 108 mg/dL (40-60); LDL Cholesterol Calculated 73 mg/dL (<100); Triglycerides 65 mg/dL (35-150)
[2023-01-23 09:49] LABS: Thyroid Stimulating Hormone 4.71 uIU/mL (0.47-4.68)
== END ==
PROVIDERS: Family Provider Internal Medicine; PCP Internal Medicine; Referring Provider Internal Medicine; Visit Provider Internal Medicine
DX: E78.2 Mixed hyperlipidemia (principal); E03.9 Hypothyroidism, unspecified
CPT/HCPCS: 36415; 80061; 84443

== ENCOUNTER → 2023-09-30 08:03 | Outpatient (CLI) | payer MEDICARE, OTHER, SELFPAY ==
[2023-09-30 09:17] LABS: Aspartate Aminotransferase 33 IU/L (14-36); BUN Creatinine Ratio 14.9 (6-22); Blood Urea Nitrogen 11 mg/dL (7-17); Calcium 9.5 mg/dL (8.4-10.2); Carbon Dioxide 27 mmol/L (22-32); Chloride 106 mmol/L (98-107); Cholesterol 166 mg/dL (140-199); Estimated Glomerular Filt Rate > 60 mL/min (>60); Glucose 88 mg/dL (80-110); HEMOLYSIS < 15 (0-50); Potassium 4.3 mmol/L (3.4-5.1); Sodium 138 mmol/L (137-145); Triglycerides 62 mg/dL (35-150)
[2023-09-30 09:24] LABS: HDL Cholesterol 109 mg/dL (40-60); LDL Cholesterol Calculated 45 mg/dL (<100)
[2023-09-30 09:45] LABS: TSH w/ Reflex to FT4 8.12 uIU/mL (0.47-4.68)
[2023-09-30 20:40] LABS: Free T4, Direct Thyroxine 1.27 ng/dL (0.78-2.19)
== END ==
PROVIDERS: Family Provider Internal Medicine; PCP Internal Medicine; Referring Provider Internal Medicine; Visit Provider Internal Medicine
DX: E78.2 Mixed hyperlipidemia (principal); E03.9 Hypothyroidism, unspecified; I10 Essential (primary) hypertension
CPT/HCPCS: 36415; 80048; 80061; 84439; 84443; 84450

== ENCOUNTER → 2023-10-08 09:11 | Outpatient (CLI) | payer MEDICARE, OTHER, SELFPAY ==
[2023-10-09 12:30] LABS: Vitamin B12 196 pg/mL (239-931)
[2023-10-10 17:17] LABS: Alpha-1-Globulin 0.2 g/dL (0.0-0.4); Alpha-2-Globulin 0.7 g/dL (0.4-1.0); Gamma Globulin 0.9 g/dL (0.4-1.8); Globulin Total 2.7 g/dL (2.2-3.9); Protein, Total 6.7 g/dL (6.0-8.5)
== END ==
PROVIDERS: Family Provider Internal Medicine; PCP Internal Medicine; Referring Provider Internal Medicine; Visit Provider Internal Medicine
DX: D89.1 Cryoglobulinemia (principal); E53.8 Deficiency of other specified B group vitamins
CPT/HCPCS: 36415; 82595; 82607; 84155; 84165

== ENCOUNTER → 2024-02-06 11:49 | Outpatient (CLI) | payer MEDICARE, OTHER, SELFPAY ==
[2024-02-06 12:51] LABS: BUN Creatinine Ratio 12.9 (6-22); Blood Urea Nitrogen 9 mg/dL (7-17); Calcium 9.5 mg/dL (8.4-10.2); Carbon Dioxide 24 mmol/L (22-32); Chloride 105 mmol/L (98-107); Estimated Glomerular Filt Rate > 60 mL/min (>60); Glucose 82 mg/dL (80-110); HEMOLYSIS < 15 (0-50); Potassium 4.2 mmol/L (3.4-5.1); Sodium 137 mmol/L (137-145)
[2024-02-06 13:25] LABS: TSH w/ Reflex to FT4 0.59 uIU/mL (0.47-4.68)
[2024-02-06 13:44] LABS: Vitamin B12 837 pg/mL (239-931)
== END ==
PROVIDERS: Family Provider Internal Medicine; PCP Internal Medicine; Referring Provider Internal Medicine; Visit Provider Internal Medicine
DX: E03.9 Hypothyroidism, unspecified (principal); E53.8 Deficiency of other specified B group vitamins
CPT/HCPCS: 36415; 80048; 82607; 84443

== ENCOUNTER → 2024-03-11 15:19 | Outpatient (CLI) | payer MEDICARE, OTHER, SELFPAY ==
--- NOTE | 2024-03-11 15:21 | DI.US.S_ITS ---
PROCEDURE: US ARTERIAL DUPLEX LE BI INDICATIONS: COLD EXTREMITIES TECHNIQUE: Color and pulse Doppler interrogation was performed of both lower extremity arterial systems, with image documentation. COMPARISON: None. FINDINGS: Right lower extremity: Common femoral artery: 95 cm/sec, with triphasic flow. Deep femoral artery: 67 cm/sec, with triphasic flow. Proximal superficial femoral artery: 87 the cm/sec, with triphasic flow. Mid superficial femoral artery: 82 cm/sec, with triphasic flow. Distal superficial femoral artery: 71 cm/sec, with triphasic flow. Popliteal artery: 83 cm/sec, with triphasic flow. Posterior tibial artery: 48 cm/sec, with triphasic flow. Anterior tibial artery/dorsalis pedis: 36 cm/sec, with triphasic flow. Sosa-scale imaging description: Minimal plaque throughout the right lower extremity arterial system Left lower extremity: Common femoral artery: 117 cm/sec, with triphasic flow. Deep femoral artery: 80 cm/sec, with triphasic flow. Proximal superficial femoral artery: 93 cm/sec, with triphasic flow. Mid superficial femoral artery: 85 cm/sec, with triphasic flow. Distal superficial femoral artery: 78 cm/sec, with triphasic flow. Popliteal artery: 81 cm/sec, with triphasic flow. Posterior tibial artery: 70 cm/sec, with triphasic flow. Anterior tibial artery/dorsalis pedis: 41 cm/sec, with triphasic flow. Sosa-scale imaging description: Minimal plaque throughout the left lower extremity arterial system IMPRESSION: No significant stenosis involving bilateral lower extremity arterial systems. Dictated by: Oh Young M.D. on 03/11/2024 at 16:26 Approved by: Oh Young M.D. on 03/11/2024 at 16:27
== END ==
LOC: US 15:20
PROVIDERS: Family Provider Internal Medicine; PCP Internal Medicine; Referring Provider Internal Medicine Endocrinology, Diabetes & Metabolism; Visit Provider Internal Medicine Endocrinology, Diabetes & Metabolism
DX: R20.9 Unspecified disturbances of skin sensation (principal)
CPT/HCPCS: 93925

== ENCOUNTER 2024-05-21 08:44 | Emergency (ER) | payer MEDICARE, OTHER, SELFPAY ==
[2024-05-21] VITALS (33 sets, daily range): BP systolic 130–194; BP diastolic 63–104; PULSE 65–105; RESP 16–51; TEMP 36.5; O2SAT 96–100; BMI 17.8
--- NOTE | 2024-05-21 08:50 | ED_ITS ---
HPI - General Adult General Chief complaint: Neuro Symptoms/Deficit Stated complaint: severe headache Time Seen by Provider: 05/21/24 08:46 History of Present Illness HPI narrative: 88-year-old woman with a history of hypothyroidism, prior stroke that included a central retinal artery occlusion, hypertension hyperlipidemia who apparently was normal when she went to bed last night. When she woke up this morning she seemed confused, was complaining of a severe headache, unable to focus or answer direct questions, she was able to walk to the car and walk to the triage room. notes that she is ?off? Related Data Home Medications Medication Instructions Recorded Confirmed calcium carbonate 500 mg capsule 500 mg PO BID 10/24/21 02/05/24 ketoconazole 2 % shampoo 1 applic topical .COMPLEX 01/27/23 02/05/24 erythromycin 5 mg/gram (0.5 %) eye 1 applic EYE-BOTH DAILY PRN 10/08/23 02/05/24 ointment ipratropium bromide 42 mcg (0.06 1 spray intranasal DAILY 10/08/23 02/05/24 %) nasal spray cholecalciferol (vitamin D3) 25 25 mcg PO DAILY 02/05/24 02/05/24 mcg (1,000 unit) capsule cyanocobalamin (vitamin B-12) 1,000 mcg PO DAILY 02/05/24 02/05/24 1,000 mcg tablet (Vitamin B-12) Previous Rx's Medication Instructions Recorded losartan 50 mg tablet 50 mg PO DAILY #90 tabs 08/08/23 levothyroxine 75 mcg capsule 75 mcg PO DAILY #90 caps 10/08/23 rosuvastatin 10 mg tablet 10 mg PO DAILY #90 tabs 01/21/24 Allergies Allergy/AdvReac Type Severity Reaction Status Date / Time amoxicillin Allergy Unknown Verified 02/05/24 09:27 lisinopril AdvReac Intermediate Cough Verified 02/05/24 09:27 nitrofurantoin AdvReac Unknown Verified 02/05/24 09:27 Review of Systems Review of Systems Narrative: Review of systems is difficult an incomplete based on patient's cognitive status and has minimal additional input Patient History Medical History Cobalamin deficiency Polyneuropathy, unspecified Do not resuscitate Age-related osteoporosis without current pathological fracture Mixed hyperlipidemia Acquired hypothyroidism Essential hypertension Actinic keratosis IgA deficiency Pseudogout Carpal tunnel syndrome Mumps Measles Chicken pox CRVO (central retinal vein occlusion) Hearing loss Cataracts, bilateral Abnormal Pap smear of cervix (~1973) Frequent UTI Hemorrhoid (~2004) Surgical History Anesthesia History of hip replacement (~2007) History of rectopexy (~2004) Hx of breast implants, bilateral (~1977) History of tubal ligation (~1969) History of inguinal hernia repair (~194) Social History marital status: details: (Tirso), 2 sons Smoking Status: Former smoker Smoking Status: Former smoker tobacco type: cigarettes alcohol intake frequency: 0-2 drinks per day Substance Use Type: does not use Exam Initial Vital Signs Initial Vital Signs: Vital Signs Blood Pressure 187/86 H 05/21/24 08:49 General: Frail-appearing, complaining of headache, she is confused, perseverating questions continues to complain of dry mouth can not stay focused HEENT: Dry mucous membranes, normal sclera with reactive pupils, Respiratory: Lungs are clear to auscultation, no wheezing no rales no rhonchi. Full and symmetrical air movement Cardiac: Regular rate and rhythm no murmurs no bruits Abdomen: Soft, nontender, good bowel tones, no flank pain Skin: Warm and dry, no rashes, multiple superficial bruises due to the overall thin skin Neurologic: Patient is able to walk without difficulty. She is confused, distractible, perseverating slight dysarthria significant receptive and expressive aphasias Extremities: No trauma, well perfused Psych: Cooperative, confused Patient has a prior right eye central retinal occlusion, receives injections and care from her chain builder. Decreased vision unclear what her baseline is. Left eye seems to have a medial field hemianopsia. Testing is challenging with her aphasia NIH Stroke Scale/Score (NIHSS) on 05/21/2024 RESULT SUMMARY: 6 points NIH Stroke Scale INPUTS: 1A: Level of consciousness ?> 0 = Alert; keenly responsive 1B: Ask month and age ?> 1 = 1 question right 1C: 'Blink eyes' & 'squeeze hands' ?> 1 = Performs 1 task 2: Horizontal extraocular movements ?> 0 = Normal 3: Visual diaz ?> 1 = Partial hemianopia 4: Facial palsy ?> 0 = Normal symmetry 5A: Left arm motor drift ?> 0 = No drift for 10 seconds 5B: Right arm motor drift ?> 0 = No drift for 10 seconds 6A: Left leg motor drift ?> 0 = No drift for 5 seconds 6B: Right leg motor drift ?> 0 = No drift for 5 seconds 7: Limb Ataxia ?> 0 = No ataxia 8: Sensation ?> 0 = Normal; no sensory loss 9: Language/aphasia ?> 2 = Severe aphasia: fragmentary expression, inference needed, cannot identify materials 10: Dysarthria ?> 1 = Mild-moderate dysarthria: slurring but can be understood 11: Extinction/inattention ?> 0 = No abnormality Course Orders Ordered: ED Orders 05/21/24 08:53 Complete Blood Count AUTO DIFF Stat Comprehensive Metabolic Panel Stat Ethanol (ETOH) Stat PTT Partial Thromboplastin Jerry Stat Prothrombin Time INR Stat Troponin & CK Cardiac Panel Stat 05/21/24 08:[address] angio head and neck Stat Urine Drug Screen, Rapid Stat EKG-12 Lead Stat 05/21/24 09:58 CT angio head Stat Discontinued Medications Nicardipine HCl 25 mg/ Sodium (Chloride) 250 mls @ 50 mls/hr IV TITRATE ANEL; Protocol Last Titration: 05/21/24 11:05 Dose: 5 mg/hr, 50 mls/hr Documented By: Titration: 05/21/24 10:21 Dose: 0 mg/hr, 0 mls/hr Documented By: Admin: 05/21/24 09:58 Dose: 5 mg/hr, 50 mls/hr Documented By: KAITY Vital Signs Vital signs: Vital Signs - 8 hr 05/21/24 08:49 05/21/24 08:50 05/21/24 08:51 Temperature 97.7 F Pulse Rate 70 70 Respiratory Rate 16 Blood Pressure 187/86 H 186/86 H Pulse Oximetry 99 99 Oxygen Delivery Method Room Air 05/21/24 08:55 05/21/24 09:00 05/21/24 09:00 Temperature Pulse Rate 73 72 Respiratory Rate 25 H 34 H Blood Pressure 177/81 H Pulse Oximetry 99 100 Oxygen Delivery Method 05/21/24 09:05 05/21/24 09:10 05/21/24 09:15 Temperature Pulse Rate 68 67 67 Respiratory Rate 28 H 30 H Blood Pressure Pulse Oximetry 100 100 100 Oxygen Delivery Method 05/21/24 09:17 05/21/24 09:17 05/21/24 09:20 Temperature Pulse Rate 67 67 Respiratory Rate 29 H Blood Pressure 171/79 H Pulse Oximetry 100 100 Oxygen Delivery Method 05/21/24 09:20 05/21/24 09:25 05/21/24 09:25 Temperature Pulse Rate 65 Respiratory Rate 28 H Blood Pressure 167/79 H 175/84 H Pulse Oximetry 99 Oxygen Delivery Method 05/21/24 09:30 05/21/24 09:35 05/21/24 09:40 Temperature Pulse Rate 66 68 68 Respiratory Rate 31 H 31 H 32 H Blood Pressure Pulse Oximetry 99 100 100 Oxygen Delivery Method 05/21/24 09:44 05/21/24 09:44 05/21/24 09:45 Temperature Pulse Rate Respiratory Rate Blood Pressure 163/104 H 194/93 H Pulse Oximetry 100 Oxygen Delivery Method 05/21/24 09:45 05/21/24 09:50 05/21/24 09:50 Temperature Pulse Rate 89 69 Respiratory Rate 45 H 33 H Blood Pressure 171/81 H Pulse Oximetry 99 99 Oxygen Delivery Method 05/21/24 09:55 05/21/24 09:55 05/21/24 10:00 Temperature Pulse Rate 74 75 Respiratory Rate 39 H 28 H Blood Pressure 179/92 H Pulse Oximetry 98 98 Oxygen Delivery Method 05/21/24 10:05 05/21/24 10:10 05/21/24 10:11 Temperature Pulse Rate 77 77 Respiratory Rate 37 H 24 Blood Pressure 164/78 H Pulse Oximetry 100 Oxygen Delivery Method 05/21/24 10:11 05/21/24 10:15 05/21/24 10:15 Temperature Pulse Rate 77 84 Respiratory Rate 41 H Blood Pressure 143/68 H Pulse Oximetry 100 99 Oxygen Delivery Method 05/21/24 10:18 05/21/24 10:18 05/21/24 10:20 Temperature Pulse Rate 89 89 Respiratory Rate 44 H 50 H Blood Pressure 150/65 H Pulse Oximetry 100 98 Oxygen Delivery Method 05/21/24 10:21 05/21/24 10:21 05/21/24 10:25 Temperature Pulse Rate 90 Respiratory Rate 36 H Blood Pressure 137/65 130/63 Pulse Oximetry 99 Oxygen Delivery Method 05/21/24 10:25 05/21/24 10:30 05/21/24 10:30 Temperature Pulse Rate 87 105 H Respiratory Rate 35 H 36 H Blood Pressure 156/70 H Pulse Oximetry 99 96 Oxygen Delivery Method 05/21/24 10:34 05/21/24 10:35 05/21/24 10:35 Temperature Pulse Rate 86 87 Respiratory Rate 45 H 51 H Blood Pressure 149/69 H Pulse Oximetry 99 99 Oxygen Delivery Method 05/21/24 10:40 05/21/24 10:40 05/21/24 10:45 Temperature Pulse Rate 85 Respiratory Rate 38 H Blood Pressure 148/68 H 152/70 H Pulse Oximetry 99 Oxygen Delivery Method 05/21/24 10:45 05/21/24 10:50 05/21/24 10:50 Temperature Pulse Rate 81 80 Respiratory Rate 43 H 38 H Blood Pressure 161/74 H Pulse Oximetry 99 99 Oxygen Delivery Method Medical Decision Making Lab Data 05/21/24 08:53 05/21/24 08:53 Labs: Lab Results 05/21/24 Range/Units 08:53 WBC 5.8 (4.5-11.0) X10^3/uL RBC 4.71 (4.0-5.2) X10^6/uL Hgb 14.2 (12.0-16.0) g/dL Hct 42.9 (36-46) % MCV 91.2 (80-100) fL MCH 30.1 (26-34) PG MCHC 33.0 (30-36) % RDW 14.8 (11.6-14.8) % Plt Count 247 (150-400) X10^3/uL Neut % (Auto) 53.4 (50-75) % Lymph % (Auto) 32.7 (25-40) % Dickens % (Auto) 10.6 (3-14) % Eos % (Auto) 2.1 (2-4) % Baso % (Auto) 1.2 (0-2) % Neut # (Auto) 3100 (5436-7884) /uL Lymph # (Auto) 1900 (6166-7124) /uL Dickens # (Auto) 600 (0-900) /uL Eos # (Auto) 100 (0-450) /uL Baso # (Auto) 100 (0-100) /uL PT 11.7 (9.4-12.5) SECONDS INR 1.0 (0.9-1.3) APTT 30 (25.1-36.5) SECONDS Sodium 135 L (137-145) mmol/L Potassium 4.1 (3.4-5.1) mmol/L Chloride 105 (98-107) mmol/L Carbon Dioxide 24 (22-32) mmol/L BUN 9 (7-17) mg/dL Creatinine 0.70 (0.52-1.04) mg/dL Estimated GFR > 60 (>60) mL/min BUN/Creatinine Ratio 12.9 (6-22) Glucose 109 (80-110) mg/dL Calcium 9.7 (8.4-10.2) mg/dL Total Bilirubin 0.8 (0.2-1.3) mg/dL AST 33 (14-36) IU/L ALT 16 (<35) IU/L Alkaline Phosphatase 66 (38-126) U/L Total Creatine Kinase 66 (30-135) U/L Troponin I < 0.012 (0.01-0.034) ng/mL Total Protein 7.2 (6.3-8.2) g/dL Albumin 4.5 (3.5-5.0) g/dL Globulin 2.7 (1.7-4.1) g/dL Albumin/Globulin Ratio 1.7 (1.0-2.8) Ethyl Alcohol < 10 ( - 10) mg/dL Point of Care Testing Glucose POC 102 Point of care testing: Point of Care Testing Glucose POC [address] scan - head: Radiologist's Impression: PROCEDURE: CT STROKE INDICATIONS: stroke TECHNIQUE: Noncontrast 4.5 mm thick angled axial sections acquired from the foramen magnum to the vertex, with coronal reformats. For radiation dose reduction, the following was used: automated exposure control, adjustment of mA and/or kV according to patient size. COMPARISON: None. FINDINGS: Image quality: Diagnostic. CSF spaces: Basal cisterns are patent. No extra-axial fluid collections. The ventricles are symmetric in size and shape. Brain: Acute intracranial/parenchymal hemorrhage involving the left posterior occipital lobe with effacement of the overlying sulci. Mild surrounding vasogenic edema. Suggestion of small subarachnoid component adjacent to parenchymal hemorrhage. No significant midline shift of structures. No definite intracranial masses. There is cerebral volume loss for age, with resultant ventricular and sulcal prominence. There are periventricular and deep white matter chronic small vessel ischemic changes. There is intracranial internal carotid artery atherosclerosis. Skull and face: Calvarium and visualized facial bones appear intact, without suspicious lesions. Sinuses: Mild mucosal thickening of the right maxillary sinus. Likely left maxillary sinus mucous retention cyst. Mastoids appear clear. IMPRESSION: 1. Moderate-sized acute intraparenchymal hemorrhage involving the left posterior occipital lobe with suggestion of mild adjacent subarachnoid hemorrhage. There is mild associated vasogenic edema with effacement of the overlying sulci. No significant midline shift of structures. Findings may represent acute hemorrhagic stroke. Underlying mass not excluded but thought less likely. 2. Age related senescent changes and sequela of chronic small vessel ischemic disease. Findings were discussed with Dr. Chua at 0948 hrs. This study fulfills neurological imaging criteria for inclusion or exclusion of acute stroke therapies based on available published neurological guidelines. Dictated by: Trever Funes M.D. on 05/21/2024 at 9:43 CT head and neck angio: Radiologist's Impression: PROCEDURE: CT ANGIO HEAD AND NECK INDICATIONS: stroke TECHNIQUE: After the administration of intravenous contrast, 1 mm thick sections acquired from the aortic arch through the [place]. 3-dimensional icafpxx-veatfmxcg-pstcatqrqg (MIP) and/or volume rendering reformats were acquired of the central intracranial vasculature and neck separately. For radiation dose reduction, the following was used: automated exposure control, adjustment of mA and/or kV according to patient size. COMPARISON: [facility], CT, CT STROKE, 05/21/2024, 9:30. FINDINGS: Image quality: Diagnostic. BRAIN: See separately dictated CT head report of 05/21/2024, noting left parietal occipital hemorrhage. HEAD CT ANGIOGRAPHY: Anterior circulation: The right internal carotid artery at the supraclinoid portion demonstrates patulous lobulation measuring 9 mm in dimension. The neck from the more inferior portion of the internal carotid artery measures approximately 5 mm. . The flow within the paired anterior cerebral arteries is normal and symmetric. The flow within the middle cerebral arteries is normal and symmetric. The anterior communicating artery is seen. No aneurysms are seen. Posterior circulation: Vertebral arteries are codominant. Visualized portions of the vertebral arteries demonstrate normal caliber, and join to form a normal appearing basilar artery. Flow within the posterior cerebral arteries is normal and symmetric. No aneurysms are seen. NECK CT ANGIOGRAPHY: Carotid system: The great vessels demonstrate a conventional anatomy as they arise from the aortic arch. The origins of the common carotid arteries appear patent. The common carotid arteries demonstrate normal caliber and courses. The bifurcation regions are both widely patent. There is a small outpouching within the anterior wall of the left internal carotid artery medially proximal to the petrous portion seen on series 9, image 67. This measures 1-2 mm. In addition, multiple areas of short-segment wall irregularity are present within the right internal carotid artery, proximal to the petrous portion. Posterior circulation: The origins of the vertebral arteries both appear widely patent. The more superior extracranial portions of both vertebral arteries also demonstrate normal courses and calibers. They join to form a normal appearing basilar artery. Soft tissues: Visualized neck soft tissues demonstrate no suspicious abnormalities. Bones: No suspicious bony lesions. Visualized cervical spine appears normally aligned. 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 1-2 mm outpouching along the anterior internal carotid artery wall within the neck. More prominent multifocal appearance is present on the left. Areas of short-segment stenosis are present most prominently on the left. The undulating appearance also does raise suspicion for underlying vascular disease/vasculitis. See separate CT head report noting left parietal occipital hemorrhage. No distinct underlying mass. However, recommend MRI for further evaluation as after hemorrhage subsides. Any quantitative measurements of stenosis were performed using NASCET criteria. Dictated by: Deysi Jesus M.D. on 05/21/2024 at 10:13 CT venous phase angio head: Radiologist's Impression: PROCEDURE: CT ANGIO HEAD INDICATIONS: HEAD VENOGRAM PER [place] TECHNIQUE: Precontrast 4.5 mm thick angled axial sections acquired from the foramen magnum to the vertex. After the administration of intravenous contrast, 1 mm thick sections acquired from the skull base to the vertex after an appropriate venous phase delay. Postcontrast 4.5 mm thick sections then re-acquired from the foramen magnum to the vertex. Bdcrehl-lsmqmmfeo-owqqsuhtzx (MIP) reformats were acquired of the venous structures. For radiation dose reduction, the following was used: automated exposure control, adjustment of mA and/or kV according to patient size. COMPARISON: None. FINDINGS: Image quality: Excellent. There is occlusion of the sagittal as well as left sigmoid and transverse venous sinuses. The area of hemorrhage in the left parietal occipital lobe continues to increased compared to prior exam. In addition, there are several foci of pooling contrast within the parenchyma which have developed since the CTA exam with the largest measuring 7 mm on series 2, image 96. No visualized underlying vascular malformation. Remainder of previously reported findings are stable. IMPRESSION: Occlusion of the sagittal, left sigmoid and transverse venous sinuses. Increased appearance of hemorrhage within the left parietal occipital lobe with interval parenchymal contrast pooling. The latter is felt to likely represent the slow continued hemorrhage becoming manifest between the arterial and venous injections, given lack of underlying visualized vascular malformation. Other differential although uncharacteristic in appearance would be hemorrhagic transformation within a venous infarct. The above findings were discussed with Dr. Suzanne Chua on 05/21/2024 at 12:30 p.m.. Dictated by: Deysi Jesus M.D. on 05/21/2024 at 12:16 MDM Narrative Medical decision making narrative: CC: Altered mental status upon awakening Complicating co-morbidities: Hypertension, hyperlipidemia, prior right central artery occlusion Data collected from: patient, Medical records reviewed: Primary care notes are reviewed Differential considered: Stroke, intracranial hemorrhage, mass or tumor, sepsis Exam documented above, pertinent findings include: Expressive and receptive aphasia, mild dysarthria. NIH score is 6 Lab Test results independently reviewed as above. Pertinent findings: CBC is unremarkable PT PTT are within normal limits Chemistries are unremarkable Troponin is undetectable Independently reviewed EKG: Sinus rhythm at a rate of 69 no acute ischemic change Imaging studies independently reviewed Imaging studies is reviewed, radiology interpretations above and discussions below Re-evaluations: 936am called to CT suite concerns for acute intraparenchymal bleed left occipital area, scans reviewed while patient is in the scanner 9:37 a.m. decision to call tele stroke 945 a.m. discussion with [facility] tele stroke. ED to ED transfer, anticipate neuro ICU admission, nicardipine with blood pressure goals 120-160 systolic [address] Funes, radiology. Describes the left occipital intraparenchymal bleed with minor vasogenic edema and likely a small subarachnoid bleed as well there is no significant shift. The neurologist had asked for a venous CT study to confirm that there were no sinus occlusions. Radiologist will talk with the techs and we will take patient back to do the venous portions of the study 10am findings, concerns, plans including transfer, possible helicopter transfer, additional medications are all reviewed with the patient and . She did have some vomiting and is given some Zofran 1005 nicardipine is started, goal is systolic blood pressure [phone] Airlift arrival Discussion: 88-year-old woman who awoke with an expressive aphasia, NIH score of 6. CT scan shows an intraparenchymal hemorrhage. She will be transferred to [facility] for definitive treatment. 2pm Phone call from Dr. Jesus regarding venous CT scan phase interpretation. She describes occlusion of the sagittal, left sigmoid and transverse venous sinuses and increased appearance of hemorrhage within the left parietal occipital lobe with interval parenchymal contrast pooling. These images have been transmitted to [facility], we will review with the stroke Neurology team to make sure they are aware of these findings Critical Care Time Critical Care Time Critical Care Time: Yes Total Critical Care Time: 37 Attestation: Critical care time is separate from other billable procedures. There is a high probability of a significant, sudden or life-threatening deterioration that requires my full and direct attention, intervention and personal management. This critical care time includes consultation with family and other consulting doctors, review of records, and interpretation of data from labs, EKGs and imaging as well as managements of intraparenchymal hemorrhage with IV blood pressure management and transfer for neurosurgical care Discharge Plan Departure Patient Disposition: [facility] Clinical Impression: Acute spont intraparenchymal hemorrhage assoc w/ hypertension Prescriptions: No Action losartan 50 mg tablet 50 mg PO DAILY Qty: 90 3RF rosuvastatin 10 mg tablet 10 mg PO DAILY Qty: 90 3RF ketoconazole 2 % shampoo 1 applic topical .COMPLEX Rx Instructions: 1 applic topically; apply to SCALP 2-3 TIMES WEEKLY. LET SIT FOR 5 MINUTES THEN RINSE ipratropium bromide 42 mcg (0.06 %) spray,non-aerosol 1 spray intranasal DAILY erythromycin 5 mg/gram (0.5 %) ointment 1 applic EYE-BOTH DAILY PRN levothyroxine 75 mcg capsule 75 mcg PO DAILY Qty: 90 3RF calcium carbonate 500 mg capsule 500 mg PO BID cholecalciferol (vitamin D3) 25 mcg (1,000 unit) capsule 25 mcg PO DAILY cyanocobalamin (vitamin B-12) [Vitamin B-12] 1,000 mcg tablet 1,000 mcg PO DAILY Referrals: Jim Fuller MD [Primary Care Provider] -
--- NOTE | 2024-05-21 08:59 | DI.CT.S_ITS ---
PROCEDURE: CT STROKE INDICATIONS: stroke TECHNIQUE: Noncontrast 4.5 mm thick angled axial sections acquired from the foramen magnum to the vertex, with coronal reformats. For radiation dose reduction, the following was used: automated exposure control, adjustment of mA and/or kV according to patient size. COMPARISON: None. FINDINGS: Image quality: Diagnostic. CSF spaces: Basal cisterns are patent. No extra-axial fluid collections. The ventricles are symmetric in size and shape. Brain: Acute intracranial/parenchymal hemorrhage involving the left posterior occipital lobe with effacement of the overlying sulci. Mild surrounding vasogenic edema. Suggestion of small subarachnoid component adjacent to parenchymal hemorrhage. No significant midline shift of structures. No definite intracranial masses. There is cerebral volume loss for age, with resultant ventricular and sulcal prominence. There are periventricular and deep white matter chronic small vessel ischemic changes. There is intracranial internal carotid artery atherosclerosis. Skull and face: Calvarium and visualized facial bones appear intact, without suspicious lesions. Sinuses: Mild mucosal thickening of the right maxillary sinus. Likely left maxillary sinus mucous retention cyst. Mastoids appear clear. IMPRESSION: 1. Moderate-sized acute intraparenchymal hemorrhage involving the left posterior occipital lobe with suggestion of mild adjacent subarachnoid hemorrhage. There is mild associated vasogenic edema with effacement of the overlying sulci. No significant midline shift of structures. Findings may represent acute hemorrhagic stroke. Underlying mass not excluded but thought less likely. 2. Age related senescent changes and sequela of chronic small vessel ischemic disease. Findings were discussed with Dr. Chua at 0948 hrs. This study fulfills neurological imaging criteria for inclusion or exclusion of acute stroke therapies based on available published neurological guidelines. Dictated by: Trever Funes M.D. on 05/21/2024 at 9:43 Approved by: Trever Funes M.D. on 05/21/2024 at 9:53
--- NOTE | 2024-05-21 08:59 | DI.CT.S_ITS ---
PROCEDURE: CT ANGIO HEAD AND NECK INDICATIONS: stroke TECHNIQUE: After the administration of intravenous contrast, 1 mm thick sections acquired from the aortic arch through the [place]. 3-dimensional kynhmog-nqdtrckog-hretvxgqtv (MIP) and/or volume rendering reformats were acquired of the central intracranial vasculature and neck separately. For radiation dose reduction, the following was used: automated exposure control, adjustment of mA and/or kV according to patient size. COMPARISON: [facility], CT, CT STROKE, 05/21/2024, 9:30. FINDINGS: Image quality: Diagnostic. BRAIN: See separately dictated CT head report of 05/21/2024, noting left parietal occipital hemorrhage. HEAD CT ANGIOGRAPHY: Anterior circulation: The right internal carotid artery at the supraclinoid portion demonstrates patulous lobulation measuring 9 mm in dimension. The neck from the more inferior portion of the internal carotid artery measures approximately 5 mm. . The flow within the paired anterior cerebral arteries is normal and symmetric. The flow within the middle cerebral arteries is normal and symmetric. The anterior communicating artery is seen. No aneurysms are seen. Posterior circulation: Vertebral arteries are codominant. Visualized portions of the vertebral arteries demonstrate normal caliber, and join to form a normal appearing basilar artery. Flow within the posterior cerebral arteries is normal and symmetric. No aneurysms are seen. NECK CT ANGIOGRAPHY: Carotid system: The great vessels demonstrate a conventional anatomy as they arise from the aortic arch. The origins of the common carotid arteries appear patent. The common carotid arteries demonstrate normal caliber and courses. The bifurcation regions are both widely patent. There is a small outpouching within the anterior wall of the left internal carotid artery medially proximal to the petrous portion seen on series 9, image 67. This measures 1-2 mm. In addition, multiple areas of short-segment wall irregularity are present within the right internal carotid artery, proximal to the petrous portion. Posterior circulation: The origins of the vertebral arteries both appear widely patent. The more superior extracranial portions of both vertebral arteries also demonstrate normal courses and calibers. They join to form a normal appearing basilar artery. Soft tissues: Visualized neck soft tissues demonstrate no suspicious abnormalities. Bones: No suspicious bony lesions. Visualized cervical spine appears normally aligned. 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 1-2 mm outpouching along the anterior internal carotid artery wall within the neck. More prominent multifocal appearance is present on the left. Areas of short-segment stenosis are present most prominently on the left. The undulating appearance also does raise suspicion for underlying vascular disease/vasculitis. See separate CT head report noting left parietal occipital hemorrhage. No distinct underlying mass. However, recommend MRI for further evaluation as after hemorrhage subsides. Any quantitative measurements of stenosis were performed using NASCET criteria. Dictated by: Deysi Jesus M.D. on 05/21/2024 at 10:13 Approved by: Deysi Jeuss M.D. on 05/21/2024 at 10:23
[2024-05-21 09:06] LABS: Add Manual Diff / Slide Review NO; Basophils Absolute Auto 100 /uL (0-100); Basophils Percent Auto 1.2 % (0-2); Eosinophils Absolute Auto 100 /uL (0-450); Eosinophils Percent Auto 2.1 % (2-4); Hematocrit 42.9 % (36-46); Hemoglobin 14.2 g/dL (12.0-16.0); Lymphocytes Absolute Auto 1900 /uL (1100-4500); Lymphocytes Percent Auto 32.7 % (25-40); Mean Corpuscular Hemoglobin 30.1 PG (26-34); Mean Corpuscular Volume 91.2 fL (80-100); Monocytes Absolute Auto 600 /uL (0-900); Monocytes Percent Auto 10.6 % (3-14); Neutrophils Absolute Auto 3100 /uL (1500-7000); Neutrophils Percent Auto 53.4 % (50-75); Platelet Count 247 X10^3/uL (150-400); Red Blood Cell Count 4.71 X10^6/uL (4.0-5.2); Red Cell Distribution Width 14.8 % (11.6-14.8); White Blood Cell Count 5.8 X10^3/uL (4.5-11.0)
[2024-05-21 09:10] LABS: Prothrombin Time 11.7 SECONDS (9.4-12.5)
[2024-05-21 09:13] LABS: PTT Partial Thromboplastin Tim 30 SECONDS (25.1-36.5)
[2024-05-21 09:17] LABS: Alanine Aminotransferase 16 IU/L (<35); Albumin 4.5 g/dL (3.5-5.0); Albumin Globulin Ratio 1.7 (1.0-2.8); Alkaline Phosphatase 66 U/L (38-126); Aspartate Aminotransferase 33 IU/L (14-36); BUN Creatinine Ratio 12.9 (6-22); Bilirubin Total 0.8 mg/dL (0.2-1.3); Blood Urea Nitrogen 9 mg/dL (7-17); Calcium 9.7 mg/dL (8.4-10.2); Carbon Dioxide 24 mmol/L (22-32); Chloride 105 mmol/L (98-107); Creatine Kinase 66 U/L (30-135); Estimated Glomerular Filt Rate > 60 mL/min (>60); Ethanol (ETOH) < 10 mg/dL; Globulin 2.7 g/dL (1.7-4.1); Glucose 109 mg/dL (80-110); HEMOLYSIS < 15 (0-50); Potassium 4.1 mmol/L (3.4-5.1); Sodium 135 mmol/L (137-145); Total Protein 7.2 g/dL (6.3-8.2)
[2024-05-21 09:29] LABS: Troponin I < 0.012 ng/mL (0.01-0.034)
--- NOTE | 2024-05-21 09:45 | PC.NURSE ---
Hospital Call List for Patient Transfer 0940: Cara, Called telestroke line and spoke with Camilo. Facesheet and images have been pushed. Dr. Chua on [place] with stroke doctor at 0945
--- NOTE | 2024-05-21 09:48 | EKG_ITS ---
[address] [address] Test Date: 2024-05-21 Pat Name: Doris Alexander Department: [facility] Room: Gender: Female [employer]: PJ : [id number] Requested By: Order Number: [id number] Reading MD: Oh Segovia Measurements Intervals [place] Rate: 69 P: 80 TN: 202 QRS: -1 QRSD: 76 T: 61 QT: 434 QTc: 465 Interpretive Statements Normal sinus rhythm Septal infarct , age undetermined Electronically Signed On 05-21-2024 16:28:10 PST by Oh Segovia
--- NOTE | 2024-05-21 09:48 | PC.NURSE ---
This RN went with patient to CT scan. monitoring tech immediately called Dr. Chua to scan room post the first scan and provider placed additional scan orders and asked for images to be pushed to [facility]. RN took off 3 gold in appearnce necklaces for CT and placed in a sample cup and labeled with patient sticker. This RN took 3 gold in appearance bracelets from right arm and placed in sample cup with patient label. Upon return to room patient began to vomit. This RN placed patient upright. 200ml of green fluid came up into bag. Provider informed.
--- NOTE | 2024-05-21 09:56 | PC.NURSE ---
This RN called pharmacy to ask for ordered nicardipine drip.
[2024-05-21] MEDS: NICARDIPINE 25 MG in SODIUM CHLORIDE 0.9% 240 ML 50 MG IV (09:58)
--- NOTE | 2024-05-21 09:58 | DI.CT.S_ITS ---
PROCEDURE: CT ANGIO HEAD INDICATIONS: HEAD VENOGRAM PER [place] TECHNIQUE: Precontrast 4.5 mm thick angled axial sections acquired from the foramen magnum to the vertex. After the administration of intravenous contrast, 1 mm thick sections acquired from the skull base to the vertex after an appropriate venous phase delay. Postcontrast 4.5 mm thick sections then re-acquired from the foramen magnum to the vertex. Psuollr-hsawxetwt-zfskcqkfxa (MIP) reformats were acquired of the venous structures. For radiation dose reduction, the following was used: automated exposure control, adjustment of mA and/or kV according to patient size. COMPARISON: None. FINDINGS: Image quality: Excellent. There is occlusion of the sagittal as well as left sigmoid and transverse venous sinuses. The area of hemorrhage in the left parietal occipital lobe continues to increased compared to prior exam. In addition, there are several foci of pooling contrast within the parenchyma which have developed since the CTA exam with the largest measuring 7 mm on series 2, image 96. No visualized underlying vascular malformation. Remainder of previously reported findings are stable. IMPRESSION: Occlusion of the sagittal, left sigmoid and transverse venous sinuses. Increased appearance of hemorrhage within the left parietal occipital lobe with interval parenchymal contrast pooling. The latter is felt to likely represent the slow continued hemorrhage becoming manifest between the arterial and venous injections, given lack of underlying visualized vascular malformation. Other differential although uncharacteristic in appearance would be hemorrhagic transformation within a venous infarct. The above findings were discussed with Dr. Suzanne Chua on 05/21/2024 at 12:30 p.m.. Dictated by: Deysi Jesus M.D. on 05/21/2024 at 12:16 Approved by: Deysi Jesus M.D. on 05/21/2024 at 12:40
--- NOTE | 2024-05-21 10:21 | PC.NURSE ---
Nicardapine goal per provider is systolic between 140-160. Paused medication with blood pressure of 137/65.
--- NOTE | 2024-05-21 10:27 | PC.NURSE ---
This RN per protocol placed additional line due to patient being on a drip medication.
--- NOTE | 2024-05-21 10:30 | PC.NURSE ---
Patient spouse requested to take the rights off that could come of patient hand. Patient left hand has 3 tricolor pinky bands. Patient left right finger has 2 gold in appearance bands and 1 gold appearance band with colorless round solitare. All 6 rings are taken by the spouse and placed in patient pink pouch. Patient spouse also takes patient purse and all its contents, the rings, necklace, and bracelets. Patient has one gold in appearance right pinky signet ring that was unable to remove that will accompany patient in transit on this finger.
--- NOTE | 2024-05-21 10:36 | PC.NURSE ---
Provider notified of patient increased breathing. Patient lungs are clear bilaterally upon auscultation. Patient states she feels short of breath. No witnessed nasal flaring, tri-poding, abdominal breathing, or accessory muscle use. Provider noted but no new orders at this time. Patient provided additional warm blankets and therapeutic communication to lower respiration rate.
--- NOTE | 2024-05-21 10:58 | PC.NURSE ---
[facility] airlift crew arrives and takes patient vital equipment of from this [facility] and replaces with their own. JEANA Garcia and JEANA Miranda take report to this RN.
--- NOTE | 2024-05-21 11:11 | PC.NURSE ---
Airlift crew got new parameters from [facility] for Nicarapine and discharged with drip running at 5mg/hr. Crew departed with medication running at 1110. This RN assisted spouse back to car in wheelchair. Spouse had patient belongings except hearing aides. Airlift crew has patient hearing aides in electronic case with power cord attached to case.
== END 2024-05-21 11:10 | disposition short-term general hospital (02) ==
PROVIDERS: Emergency Provider Emergency Medicine; Family Provider Internal Medicine; PCP Internal Medicine
DX: I61.9 Nontraumatic intracerebral hemorrhage, unspecified (principal); I10 Essential (primary) hypertension; R41.0 Disorientation, unspecified; Z86.73 Personal history of transient ischemic attack (TIA), and cerebral infarction without residual deficits; R29.706 NIHSS score 6
CPT/HCPCS: 36415; 70450; 70496; 70498; 80053; 80320; 82550; 82962; 84484; 85025; 85610; 85730; 93005; 96365; 99285; 99291

== ENCOUNTER → 2024-11-03 14:36 | Outpatient (CLI) | payer MEDICARE, OTHER, SELFPAY ==
--- NOTE | 2024-11-03 14:38 | DI.CT.S_ITS ---
PROCEDURE: CT ANGIO HEAD INDICATIONS: CEREBRAL VENOUS SINUS THROMBOSIS TECHNIQUE: Precontrast 4.5 mm thick angled axial sections acquired from the foramen magnum to the vertex. After the administration of intravenous contrast, 1 mm thick sections acquired from the skull base to the vertex after an appropriate venous phase delay. Postcontrast 4.5 mm thick sections then re-acquired from the foramen magnum to the vertex. Oyhnctb-awbasducn-afsuwnvjpp (MIP) reformats were acquired of the venous structures. For radiation dose reduction, the following was used: automated exposure control, adjustment of mA and/or kV according to patient size. COMPARISON: [facility], CT, CT ANGIO HEAD, 05/21/2024, 10:05. [facility], CT, CT STROKE, 05/21/2024, 9:30. [facility], CT, CT ANGIO HEAD AND NECK, 05/21/2024, 9:30. [facility], CT, CT ANGIO HEAD AND NECK, 09/03/2024, 10:00. FINDINGS: Image quality: Excellent. Venous structures: The superior sagittal sinus demonstrates areas thrombosis versus occlusion with collateral veins. Within the posterior aspect of the superior sagittal sinus, there is believed to be residual thrombus, as on series 6, image 107. The left transverse sinus demonstrates a similar appearance, with generalized irregularity, with a poorly visualized lumen, which is attributed to collateral circulation. The right transverse sinus demonstrates mild irregularity. CSF spaces: Ventricles are stable, with ex vacuo dilatation of the posterior aspect of the left lateral ventricle. Basal cisterns are patent. No extra-axial fluid collections. Brain: There is again tortuosity and fusiform dilatation involving the cavernous portion of the right intracranial internal carotid artery. No midline shift. No intracranial bleeds or masses. Sosa-white matter interface appears intact. There is a remote infarct seen involving the posterior aspect of the left cerebral hemisphere. Skull and face: Calvarium and facial bones appear intact, without suspicious lesions. Sinuses: Visualized sinuses and mastoids are clear. 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 There is believed to be residual thrombus within the posterior aspect of the superior sagittal sinus. 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 Dictated by: Len Olivas M.D. on 11/03/2024 at 15:42 Approved by: Len Olivas M.D. on 11/03/2024 at 15:48
[2024-11-03 15:03] LABS: Estimated Glomerular Filt Rate > 60 mL/min (>60)
== END ==
LOC: CT 14:38
PROVIDERS: Radiology Diagnostic Radiology; PCP Preventive Medicine Public Health & General Preventive Medicine; Referring Provider Psychiatry & Neurology Neurology; Visit Provider Psychiatry & Neurology Neurology
DX: G08 Intracranial and intraspinal phlebitis and thrombophlebitis (principal); I67.1 Cerebral aneurysm, nonruptured
CPT/HCPCS: 36415; 70496; 82565